=== PATIENT | female | born 1970 | race Caucasian/White ===

== ENCOUNTER 2020-04-17 16:07 | Outpatient (CLI) | payer BC ==
--- NOTE | 2020-04-17 16:49 | RAD ---
LEFT WRIST: 04/17/20 Three views. HISTORY: Wrist pain. Carpals appear normally aligned. Mild degenerative change at the scaphotrapezium and at the first car pometacarpal joint. No acute fracture. On the lateral projection, the ulna shows increased dorsal positioning. Dorsal subluxation of the uln a at the wrist cannot be excluded. IMPRESSION: Evidence of dorsal subluxation of the ulna as seen on lateral view. No fracture or acute abnormality. POS: [facility]
== END 2020-04-17 16:08 | disposition home or self-care (01) ==
LOC: BICRAD 16:07
PROVIDERS: ATTEND Internal Medicine Rheumatology
DX: M25.532 Pain in left wrist (principal); S63.072A Subluxation of distal end of left ulna, initial encounter